=== PATIENT | male | born 1985 | race Caucasian/White ===

== ENCOUNTER 2020-05-13 08:08 | Emergency (ER) | payer BC, SELFPAY ==
--- NOTE | 2020-05-13 08:19 | ED.GENADUL_ITS ---
Discharge Plan Disposition Patient Disposition: HOME Condition: Fair Discharge Details Clinical Impression: Dental infection Primary Care Provider: Steff Acosta ED Provider: Lyric Sorensen Home Meds and New Rx's Prescriptions: New amoxicillin-pot clavulanate [Augmentin] 875-125 mg tablet 1 tab PO BID Qty: 14 RF: 0 Discharge Instructions Instructions: Dental Abscess (ED) Additional Instructions: Encourage water intake. We will continue with Tylenol and ibuprofen. Please take 1000 mg of Tylenol every 6 hours as well as patient milligrams of ibuprofen every 6 hours. Please take the antibiotics as prescribed. Even if symptoms improve, please take the entire course. If you develop fever/chills, increased pain, nausea/vomiting some swelling or other new/worsening symptoms please seek care urgently once again. Otherwise, please follow-up with your dentist as soon as possible. A list of local dentist and oral surgeons is attached. As was advised by her dentist, you will likely need this tooth extracted. Medical Decision Making Patient pleasant 35-year-old male presents today with chief complaint of left lower dental pain. He reports that he was seen for the same pain 1 month ago by his dentist and was diagnosed with an infection at the #17 tooth. The dentist who recommended surgical extraction did give him a list of local dentist that would be capable of doing this. However, the patient states he is did not comply with follow-up as he improved after p.o. antibiotics. Reports left to be treated with amoxicillin. States that pain has been steadily increasing once again over the past few days. He denies any fevers or chills. Pain radiates to the ear. No rash, fevers, headaches. On exam, patient appears nontoxic. He has no notable swelling. He does have a dental carry at the #17 tooth 1 posterior lateral aspect. This is the area where the patient is tender. He has no limited motion, no swelling under the tongue, no abnormal swelling in the posterior oropharynx. Patient does not appear to have a uvula which she reports has been told since historically. Is not postsurgical. No nuchal rigidity. I do not see any evidence at this time to suggest a systemic illness, there is no drainable abscess. Patient will be treated with Augmentin. I encouraged probiotics. Encourage water intake. We did discuss appropriate dosing of Tylenol and ibuprofen. List of local dentist was again given to the patient. She will call Friday to schedule follow-up appointment. Return precautions were discussed. All his questions and concerns were addressed and he is in agreement this plan. HPI General Mode of arrival: ambulatory . Date/Time Provider Initiated Documentation: 05/13/20 08:19 . Limitations to Documentation: no limitations . Information obtained by: patient and RN notes reviewed . History of Present Illness 35 year old M presents to the emergency department with the chief complaint of left lower dental pain, described as moderate, with intensity rated at 3. Quality is described as aching, and is localized to the mouth. Patient reports no radiation. Patient started experiencing this day(s) (3) and it has been constant. Medication improves symptom(s), No exacerbating factors reported . Patient notes no other symptoms.. Patient did receive the following treatments prior to arrival, NSAID (ibuprofen at 0300) Related Data Home Medications Medication Instructions Recorded Confirmed amoxicillin-pot clavulanate 1 tab PO BID #14 tab 05/13/20 [Augmentin] Previous Rx's Medication Instructions Recorded amoxicillin-pot clavulanate 1 tab PO BID #14 tab 05/13/20 [Augmentin] Allergies Allergy/AdvReac Type Severity Reaction Status Date / Time No Known Allergies Allergy Unverified 05/13/20 08:26 Review of Systems Constitutional Constitutional: Reports as per HPI, Denies chills, Denies fatigue, Denies fever(s), Denies headache(s) and Denies poor appetite Eyes Eyes: Denies change in vision and Denies irritation ENT Ears, Nose, Mouth, and Throat: Reports as per HPI, Reports dental pain, Denies dysphagia, Denies dizziness, Denies dry mouth, Denies ear discharge, Denies otalgia, Reports facial pain, Denies headache(s), Denies hoarseness, Denies lip swelling, Denies nasal congestion, Denies odynophagia and Denies sore throat Cardiovascular Cardiovascular: Reports as per HPI and Denies chest pain Respiratory Respiratory: Reports as per HPI and Denies cough Gastrointestinal Gastrointestinal: Reports as per HPI, Denies dysphagia, Denies nausea, Denies odynophagia and Denies vomiting Integumentary/Breasts Skin/Breast: Reports as per HPI, Denies erythema, Denies rash and Denies skin pain Neurologic Neurologic: Reports as per HPI, Denies dizziness and Denies headache(s) Endocrine Endocrine: Denies fatigue Allergic/Immunologic Allergic/Immunologic: Denies lip swelling [facility] Social History Smoking/Tobacco Use Status: Current-Occasional Tobacco Type: cigarettes and e- cigarettes Smoking risk assessment performed?: Yes Alcohol Intake: never Drug use: Daily Substance use type: marijuana Do you feel safe at home: Yes Do you feel safe in your relationship?: Yes Exam Const General: cooperative, healthy appearing, comfortable, no acute distress, well developed and well groomed Nutritional Appearance: average body habitus and well nourished Orientation: alert and awake [facility] Head: normal to inspection, normocephalic and atraumatic Ears: hearing grossly normal bilaterally, external ears normal and TM's normal bilaterally General nose exam: external nose normal and nares normal Face and sinus: normal facial exam, sinuses nontender and face symmetric Mouth: oral mucosae normal, lip normal, tongue normal, oropharynx normal, no drooling, no muffled voice, normal tongue, no trismus and No restricted motion Teeth and gingiva: caries (visiblce caries at posterior and lateral aspect #17 tooth, tender here) and fair dentition Throat: posterior oropharynx normal, tonsils normal and uvula not midline (no uvula visualized) Eyes General: appearance normal, both eyes and all related structures Neck Neck: normal visual inspection, full ROM, no lymphadenopathy, no meningeal signs, trachea midline, supple and no anterior neck swelling Resp Effort & Inspection: normal respiratory effort, able to speak in complete sentences and no respiratory distress Auscultation: clear to auscultation bilaterally, no rales, no rhonchi and no wheezes Cardio Rate: regular rate Rhythm: regular rhythm Heart Sounds: S1 normal and S2 normal Skin General skin exam: no rashes or lesions noted Trauma: no lacerations or abrasions Neuro General: patient alert and patient awake Cognition: normal cognition Speech: speech normal Gait: normal gait Psych Appearance: grossly normal and well kempt Mental Status: mental status grossly normal Speech and Movement: speech and movement normal
[2020-05-13 08:21] VITALS: BP 148/99; PULSE 69; RESP 18; TEMP 36.8; O2SAT 98
== END 2020-05-13 08:57 | disposition home or self-care (01) ==
PROVIDERS: Emergency Provider Physician Assistant; PCP Family Medicine
DX: R68.84 Jaw pain (principal); K04.7 Periapical abscess without sinus
CPT/HCPCS: 99283

== ENCOUNTER 2020-05-17 07:48 | Emergency (ER) | payer BC, SELFPAY ==
[2020-05-17 07:57] VITALS: BP 151/108; PULSE 71; RESP 19; TEMP 36.7; O2SAT 100
--- NOTE | 2020-05-17 08:21 | ED.GENADUL_ITS ---
Discharge Plan Disposition Patient Disposition: HOME Condition: Improving Discharge Details Clinical Impression: Dental infection, Odontalgia Primary Care Provider: Steff Acosta ED Provider: Nas Barillas Home Meds and New Rx's Prescriptions: New hydrocodone-acetaminophen 5-325 mg tablet 1 tab PO Q8H PRN (Reason: pain) Qty: 7 RF: 0 Continued amoxicillin-pot clavulanate [Augmentin] 875-125 mg tablet 1 tab PO BID Qty: 14 RF: 0 Discharge Instructions Instructions: Dental Abscess (ED), Toothache (ED) Additional Instructions: Please follow-up with your general dentist as well as call [facility] oral surgery to be placed on a call in list. Return if you develop swelling that causes difficulty swallowing or speaking. Continue ibuprofen as needed for pain. May use Tylenol or the prescribed hydrocodone with Tylenol if needed for breakthrough pain. Small, sips of fluids. Return to the ER for any emergent concern. Medical Decision Making Otherwise healthy 35-year-old male percents for second visit for left lower dental pain. Has been taking Augmentin since visit to ED on May 13. Now with persistent left lower buccal swelling and tenderness overlying unerupted tooth #17. No evidence of abscess on clinical exam. Patient consented for inferior alveolar regional anesthesia which was performed with a 50-50 mix of bupivacaine and lidocaine. He was consented for a small number of hydrocodone to be used for severe/breakthrough pain. He has a plan to pursue follow-up with dentistry in the outpatient setting. He is stable and improved at this time, appropriate for discharge to home. HPI General Mode of arrival: ambulatory . Date/Time Provider Initiated Documentation: 05/17/20 08:05 . Limitations to Documentation: no limitations . Information obtained by: patient . History of Present Illness 35 year old M presents to the emergency department with the chief complaint of Left lower jaw pain, described as moderate, Quality is described as dull and constant, and is localized to the face, mouth and left. Patient reports no radiation. Patient started experiencing this day(s) and it has been constant. No relieving factors improve symptom(s), No exacerbating factors reported . Patient notes denies fever/chills, headaches and nausea/vomiting. Patient did receive the following treatments prior to arrival, NSAID and other (Tylenol, Augmentin) Related Data Home Medications Medication Instructions Recorded Confirmed amoxicillin-pot clavulanate 1 tab PO BID #14 tab 05/13/20 [Augmentin] hydrocodone-acetaminophen 1 tab PO Q8H PRN #7 tab 05/17/20 Previous Rx's Medication Instructions Recorded amoxicillin-pot clavulanate 1 tab PO BID #14 tab 05/13/20 [Augmentin] hydrocodone-acetaminophen 1 tab PO Q8H PRN #7 tab 05/17/20 Allergies Allergy/AdvReac Type Severity Reaction Status Date / Time No Known Allergies Allergy Unverified 05/17/20 08:02 General Stated Complaint: DentalOral ML: 4 Review of Systems Narrative: No vomiting, no change to vision, no cheek swelling, no difficulty swallowing. Denies other illness. 6 systems reviewed and otherwise negative. Dental follow-up pending. [facility] Social History Smoking/Tobacco Use Status: Current-Occasional Tobacco Type: cigarettes and e- cigarettes Smoking risk assessment performed?: Yes Alcohol Intake: never Drug use: Daily Substance use type: marijuana Do you feel safe at home: Yes Do you feel safe in your relationship?: Yes Exam Narrative Exam Narrative: GEN: awake, alert, oriented 3. Pleasant, well groomed, interactive. HEAD: Normocephalic, atraumatic ENT: Mucous membranes moist, oropharynx with mild left lower buccal swelling, no broken teeth appreciated. Tender at unerupted 17. Tympanic memories clear bilaterally external ear exam unremarkable EYES: PERRL, EOMI NECK: Full ROM, no RAMÓN, no menigismus CHEST/RESP: Nontender, clear to auscultation bilateral, no wheeze/rhonchi/rales CARDIOVASCULAR: RRR, no murmur, rub shakira. 2+ Rad pulse bilateral ABDOMEN: Soft, nontender, no mass. +Bowel sounds EXT: Full ROM, no edema, no rash Neuro: Grossly normal neurologic exam, conversant, interactive. Psych: Speech fluent, thoughts congruent, affect normal Course Vital Signs Vital signs: Vital Signs Temperature 36.7 C 05/17/20 07:57 Pulse 71 05/17/20 07:57 Respiratory Rate 19 05/17/20 07:57 Blood Pressure 151/108 H 05/17/20 07:57 Pulse Oximetry 100 05/17/20 07:57 Temperature 36.7 C 05/17/20 07:57 Temperature Source Temporal Artery Scan 05/17/20 07:57 Pulse 71 05/17/20 07:57 Respiratory Rate 19 05/17/20 07:57 Respiratory Effort 05/17/20 08:02 Blood Pressure 151/108 H 05/17/20 07:57 Blood Pressure Position Sitting 05/17/20 07:57 Pulse Oximetry 100 05/17/20 07:57 Oxygen Delivery Method Room Air 05/17/20 07:57 Oxygen Flow Rate 0 05/17/20 07:57 Pain Level 05/17/20 08:03 Procedures Nerve Block Nerve Block 1: Local Anesthetic: Bupivicaine 0.5% Procedure Successful: Yes Patient Tolerated Procedure: well Complications: none
[2020-05-17] MEDS: Bupivacaine 0.5% Pres-Free 30 ML VIAL (08:29)
[2020-05-17 08:38] VITALS: BP 132/92
== END 2020-05-17 08:40 | disposition home or self-care (01) ==
PROVIDERS: Emergency Provider Emergency Medicine; PCP Family Medicine
DX: R68.84 Jaw pain (principal); K04.7 Periapical abscess without sinus
CPT/HCPCS: 64450

== ENCOUNTER 2020-05-27 14:12 | Emergency (ER) | payer BC, SELFPAY ==
[2020-05-27 14:16] VITALS: BP 158/88; PULSE 103; RESP 16; TEMP 37; O2SAT 100
--- NOTE | 2020-05-27 14:44 | W.ED.GENAD ---
Discharge Plan Disposition Patient Disposition: HOME Condition: Stable Discharge Details Clinical Impression: Facial cellulitis Primary Care Provider: Steff Acosta ED Provider: Willard Escobar Home Meds and New Rx's Prescriptions: New sulfamethoxazole-trimethoprim [Bactrim DS] 800-160 mg tablet 1 tab PO BID Qty: 20 RF: 0 Discontinued hydrocodone-acetaminophen 5-325 mg tablet 1 tab PO Q8H PRN (Reason: pain) Qty: 7 RF: 0 Discharge Instructions Instructions: Cellulitis (ED) Additional Instructions: Bactrim as directed. [id number] Tylenol and/or Motrin as directed for discomfort. Warm compresses every 2 hours for 20 minutes. Please watch for new or worsening symptoms and return immediately to the ER. Otherwise I recommend following up with your primary care provider in the next 2-3 days for prompt reevaluation. Medical Decision Making This is a 35-year-old gentleman who presents complaining of facial infection. Chief complaint with eye infection however upon further evaluation this appears to be facial more of a nasal-facial cellulitis as opposed to a true orbital or periorbital cellulitis. Patient appears well, nontoxic, afebrile. There is no pointing abscess. No fluctuance. The eye itself is unremarkable. He is able to move his eye in all directions without any discomfort whatsoever. Initially his blood pressure was 158/88, trended downward to 135/81. Pulse upon presentation was 103, heart rate subsequently in the 90s. At this time it would appear as though he likely has facial cellulitis that stems from either what began as a pimple or potentially be a lateral right nare dryness. No signs of any obvious pointing abscess that would require I&D. No evidence of orbital or periorbital cellulitis. We discussed options at this time. I see no clear indication for IV access, CT imaging, laboratory values. Symptoms began on and are rather localized. We will initiate p.o. antibiotic therapy, initial dose of Bactrim DS given here in the ER. We discussed the importance of outpatient follow-up with his primary care provider, warm compresses, and he was encouraged to return to the ER for new or worsening symptoms. We discussed signs and symptoms of orbital versus periorbital cellulitis, additional symptoms such as increasing redness, increasing pain, pointing abscess, fever, etc. all as clear indication to return immediately to the ER. Patient understands, has no additional questions or concerns, and is comfortable with this disposition Medical Records Medical records reviewed: Yes I reviewed the patient's medical records. HPI General Mode of arrival: ambulatory. Date/Time Provider Initiated Documentation: 05/27/20 14:12. Limitations to Documentation: no limitations. Information obtained by: patient. HPI Narrative: This is a 35-year-old male, denies any significant past medical history, presenting to the ER with concern of an infection to his face. He reports that on he noticed a small pimple on the right side of his nose, also inside of his right nostril the tissue was raw because of the dry air. Subsequently the right side of his nose, tissue just below his eye has become increasingly red, swollen, uncomfortable. He reports the pain is minimal. There has been no draining. Reports a fever yesterday 100.1. He did take Tylenol today. He denies any upper eyelid swelling, blurry vision, double vision, or pain with movement of his eye. Denies any radiation of pain into his ear, down his neck, sore throat, chest pain, shortness of breath, rash elsewhere on his body. Related Data Home Medications Medication Instructions Recorded Confirmed sulfamethoxazole-trimethoprim 1 tab PO BID #20 tab 05/27/20 [Bactrim DS] Previous Rx's Medication Instructions Recorded sulfamethoxazole-trimethoprim 1 tab PO BID #20 tab 05/27/20 [Bactrim DS] Allergies Allergy/AdvReac Type Severity Reaction Status Date / Time No Known Allergies Allergy Unverified 05/17/20 08:02 General Stated Complaint: RashLesion ML: 3 Review of Systems Constitutional Constitutional: Reports fever(s) and Denies headache(s) Eyes Eyes: Denies blurry vision, Denies change in vision, Denies eye discharge and Denies eye pain ENT Ears, Nose, Mouth, and Throat: Denies ear discharge, Denies otalgia, Reports facial pain, Denies headache(s), Denies mouth pain, Denies neck mass, Denies neck pain, Denies sore throat and Denies throat swelling Cardiovascular Cardiovascular: Denies chest pain and Denies dyspnea Respiratory Respiratory: Denies cough and Denies dyspnea Gastrointestinal Gastrointestinal: Denies abdominal pain, Denies nausea and Denies vomiting Musculoskeletal Musculoskeletal: Denies neck pain Integumentary/Breasts Skin/Breast: Reports erythema Neurologic Neurologic: Denies headache(s) Allergic/Immunologic Allergic/Immunologic: Denies throat swelling [facility] Social History Smoking/Tobacco Use Status: Current-Occasional Tobacco Type: cigarettes and e-cigarettes Smoking risk assessment performed?: Yes Alcohol Intake: never Drug use: Daily Substance use type: marijuana Do you feel safe at home: Yes Do you feel safe in your relationship?: Yes Exam Const General: cooperative, healthy appearing, comfortable and no acute distress Orientation: alert and awake [facility] Head: normal to inspection, normocephalic and atraumatic Ears: external ears normal, TM's normal bilaterally and EAC's normal General nose exam: septum normal, mucous membranes and turbinates abnormal erythematous on the right and no nasal discharge noted Face and sinus: erythema and tenderness Face images: 1. Mild erythema, swelling, tenderness, warmth. There is no pointing abscess or fluctuance. Minimal diffuse induration. Skin appears to be intact. No drainage. Mouth: moist mucous membranes Teeth and gingiva: dentition normal Throat: posterior oropharynx normal Eyes General: appearance normal, both eyes and all related structures Alignment and Position: alignment normal Eyelids: eyelids normal Conjunctivae: conjunctivae normal Sclera: sclerae normal Cornea: corneas normal Pupils: PERRL EOM: EOM intact bilaterally Direct ophthalmoscopy: normal light reflex Neck Neck: normal visual inspection, full ROM, no lymphadenopathy, no meningeal signs, trachea midline, supple and nontender Resp Effort & Inspection: normal respiratory effort and able to speak in complete sentences Auscultation: clear to auscultation bilaterally Cardio Rate: regular rate Rhythm: regular rhythm Skin General skin exam: no rashes or lesions noted Neuro General: patient alert, patient awake, moves all extremities and no focal motor deficits Cognition: normal cognition Speech: speech normal Gait: normal gait Motor: muscle tone normal throughout Sensory Exam: no sensory deficits noted Psych Appearance: grossly normal Mental Status: mental status grossly normal Course Vital Signs Vital signs: Vital Signs Temperature 37 C 05/27/20 14:16 Pulse 103 H 05/27/20 14:16 Respiratory Rate 16 05/27/20 14:16 Blood Pressure 158/88 H 05/27/20 14:16 Pulse Oximetry 100 05/27/20 14:16 Temperature 37 C 05/27/20 14:16 Temperature Source Tympanic 05/27/20 14:16 Pulse 103 H 05/27/20 14:16 Respiratory Rate 16 05/27/20 14:16 Respiratory Effort Non-Labored 05/27/20 14:19 Blood Pressure 158/88 H 05/27/20 14:16 Blood Pressure Position Sitting 05/27/20 14:16 Pulse Oximetry 100 05/27/20 14:16 Oxygen Delivery Method Room Air 05/27/20 14:16 Oxygen Flow Rate 0 05/27/20 14:16 Pain Level 1 05/27/20 14:16
[2020-05-27] MEDS: Sulfameth/Trimeth DS TAB 1 TAB PO (14:54)
[2020-05-27 14:55] VITALS: BP 135/81; PULSE 97; RESP 18; O2SAT 100
== END 2020-05-27 15:31 | disposition home or self-care (01) ==
PROVIDERS: Emergency Provider Physician Assistant; PCP Family Medicine
DX: L03.211 Cellulitis of face (principal)
CPT/HCPCS: 99283; 99284

== ENCOUNTER 2020-05-28 07:48 | Emergency (ER) | payer BC, SELFPAY ==
[2020-05-28 07:58] VITALS: BP 135/76; PULSE 118; RESP 18; TEMP 36.6; O2SAT 97
--- NOTE | 2020-05-28 08:00 | DI.CT_ITS ---
EXAM: CT FACIAL W CLINICAL HISTORY: R sided facial cellulitis. TECHNIQUE: Imaging Protocol: Axial computed tomography images with coronal and sagittal reformatted images were created and reviewed CONTRAST MATERIAL: Intravenous: Omnipaque 350 Contrast volume:100 ml Contrast route:IV - COMPARISON: No exams were available for comparison FINDINGS: Facial Bones: No definite fracture is noted in facial bones. Sinuses and Mastoids: Unremarkable. Globes, extraocular muscles, optic nerves and retrobulbar fat: Normal. Upper aerodigestive tract: Normal. Mandible and bilateral temporomandibular joints: Normal. Soft tissues: Skin thickening of the right cheek. No drainable abscess or fluid collection. The aida ctive lymph nodes. Visualized portions of the brain: Normal. IMPRESSION: Soft tissue swelling over the right cheek consistent with cellulitis. No drainable abscess or fluid collection. No bony abnormality. RADIATION DOSE DELIVERED: 686.06mGy.cm Total DLP DATA REPOSITORY: All CT scans at this facility are submitted to the National Radiology Data Registry (NRDR) Dose Index Registry (DIR) with the [employer] (ACR). RADIATION OPTIMIZATION: All CT scans at this facility use at least one of these dose optimization te chniques: automated exposure control; mA and/or kV adjustment per patient size (includes targeted exa ms where dose is matched to clinical indication); or iterative reconstruction.
--- NOTE | 2020-05-28 08:09 | ED.GENADUL_ITS ---
Discharge Plan Disposition Patient Disposition: HOME Condition: Stable Discharge Details Clinical Impression: Facial cellulitis Primary Care Provider: Steff Acosta ED Provider: Willard Escobar Home Meds and New Rx's Prescriptions: Continued sulfamethoxazole-trimethoprim [Bactrim DS] 800-160 mg tablet 1 tab PO BID Qty: 20 RF: 0 Discharge Instructions Instructions: Cellulitis (ED) Additional Instructions: CT imaging does not reveal any obvious deep structure infection or abscess that requires drainage. Your white blood cell count was normal. Continue taking Bactrim as directed. Cool and/or warm compresses every 2 hours for 20 minutes. [id number] Tylenol and/or Motrin as directed for discomfort. Please watch for new or worsening symptoms and return to the ER for any concerns. I strongly recommend reaching out your primary care provider tomorrow for prompt outpatient reevaluation. HPI General Mode of arrival: ambulatory . Date/Time Provider Initiated Documentation: 05/28/20 08:08 . Limitations to Documentation: no limitations . Information obtained by: patient . HPI Narrative: This is a 35-year-old male who denies any significant past medical history. He was evaluated yesterday in the ER by me, please refer to that note as well for more thorough HPI. In short he developed an infection to the right side of his face on whether it be from dry skin in his right nostril or from a pimple on the right side of his nose. Spread into the right side of his face. Diagnosed with facial cellulitis, no evidence of abscess. He was given a prescription for Bactrim and close return precautions. He was given his dose of Bactrim yesterday in the ER and did not fill his prescription. He presents now to the ER stating that the pain is worse and the swelling has spread down his face. He reports chills but no documented fever, has taken [id number] medication for fever control. Denies global headache, visual changes, sore throat, neck pain. Related Data Home Medications Medication Instructions Recorded Confirmed sulfamethoxazole-trimethoprim 1 tab PO BID #20 tab 05/27/20 05/28/20 [Bactrim DS] Previous Rx's Medication Instructions Recorded sulfamethoxazole-trimethoprim 1 tab PO BID #20 tab 05/27/20 [Bactrim DS] Allergies Allergy/AdvReac Type Severity Reaction Status Date / Time No Known Allergies Allergy Unverified 05/28/20 08:04 General Stated Complaint: RashLesion ML: 4 Review of Systems Constitutional Constitutional: Reports fever(s) and Denies headache(s) Eyes Eyes: Denies change in vision and Denies eye discharge ENT Ears, Nose, Mouth, and Throat: Denies headache(s), Denies neck pain and Denies sore throat Cardiovascular Cardiovascular: Denies chest pain and Denies dyspnea Respiratory Respiratory: Denies cough and Denies dyspnea Gastrointestinal Gastrointestinal: Denies abdominal pain, Denies nausea and Denies vomiting Musculoskeletal Musculoskeletal: Denies back pain and Denies neck pain Integumentary/Breasts Skin/Breast: Reports erythema Neurologic Neurologic: Denies headache(s) [facility] Social History Smoking/Tobacco Use Status: Current-Occasional Tobacco Type: cigarettes and e- cigarettes Smoking risk assessment performed?: Yes Alcohol Intake: never Drug use: Daily Substance use type: marijuana Do you feel safe at home: Yes Do you feel safe in your relationship?: Yes Course Vital Signs Vital signs: Vital Signs Temperature 36.6 C 05/28/20 07:58 Pulse 118 H 05/28/20 07:58 Respiratory Rate 18 05/28/20 07:58 Blood Pressure 135/76 05/28/20 07:58 Pulse Oximetry 97 05/28/20 07:58 Temperature 36.6 C 05/28/20 07:58 Temperature Source Temporal Artery Scan 05/28/20 07:58 Pulse 118 H 05/28/20 07:58 Respiratory Rate 18 05/28/20 07:58 Respiratory Effort Non-Labored 05/28/20 08:01 Blood Pressure 135/76 05/28/20 07:58 Pulse Oximetry 97 05/28/20 07:58 Oxygen Delivery Method Room Air 05/28/20 07:58 Oxygen Flow Rate 0 05/28/20 07:58 Pain Level 3 05/28/20 07:58
[2020-05-28] MEDS: Normal Saline 1,000 ML 1000 ML IV (08:20)
[2020-05-28] MEDS: Sulfameth/Trimeth DS TAB 1 TAB PO (08:27)
[2020-05-28 08:29] LABS: Abs Immature Grans 0.04 10^3/uL (0.0-0.06); Absolute Basophil Count 0.02 10^3/uL (0.0-0.2); Absolute Lymphocyte Count 1.33 10^3/uL (1.2-3.4); Absolute Monocyte Count 0.88 10^3/uL (0.1-0.8); Absolute Neutrophil Count 8.37 10^3/uL (1.2-6.7); Basophils % 0.2; HCT 40.1 % (40.0-50.0); HGB 14.2 g/dL (13.5-17.5); Immature Grans % 0.4; Lymphocytes % 12.5; MCH 30.9 pg (27.0-33.0); MCHC 35.4 % (32.0-36.0); MCV 87.4 fL (80-95); MPV 8.5 fL (8.0-11.0); Monocytes % 8.3; Neutrophils % 78.6; Nucleated RBC 0 %; Platelet Count 234 10^3/uL (130-400); RBC 4.59 10^6/uL (4.36-5.78); RDW 11.9 % (11.8-14.1); RDW-SD 38.6 fL; WBC 10.64 10^3/uL (4.4-10.8)
[2020-05-28 08:42] LABS: ALT 44 U/L (16-63); AST 23 U/L (15-37); Albumin 3.9 g/dL (3.4-5.0); Alkaline Phosphatase 29 U/L (46-116); Anion Gap 9.7 mmol/L (3-11); BUN 7 mg/dL (7-18); Bilirubin, Total 0.9 mg/dL (0.2-1.0); CO2 23.3 mmol/L (21.0-32.0); CREATININE 0.95 mg/dL (0.70-1.30); Calcium 9.2 mg/dL (8.5-10.1); Chloride 99 mmol/L (98-107); Glucose 118 mg/dL (74-106); Potassium 3.4 mmol/L (3.5-5.1); Sodium 132 mmol/L (136-145)
[2020-05-28] MEDS: Omnipaque 350 MG/ML 100 ML BTL IJ (08:56)
[2020-05-28] MEDS: Normal Saline Flush 10 ML SYR IVP (08:58)
[2020-05-28] MEDS: Normal Saline - Diluent 50 ML VIAL IV (08:58)
--- NOTE | 2020-05-28 09:03 | DI.VRAD_ITS ---
PROCEDURE INFORMATION: Exam: CT Maxillofacial With Contrast Exam date and time: 05/28/2020 8:47 AM Age: 35 years old Clinical indication: Other: R sided facial cellulitis TECHNIQUE: Imaging protocol: Computed tomography images of the face with intravenous contrast. Radiation optimization: All CT scans at this facility use at least one of these dose optimization techniques: automated exposure control; mA and/or kV adjustment per patient size (includes targeted exams where dose is matched to clinical indication); or iterative reconstruction. Contrast material: OMNIPAQUE 350; Contrast volume: 100 ml; Contrast route: INTRAVENOUS (IV); COMPARISON: No relevant prior studies available. FINDINGS: Orbital cavity: Orbits are normal. Globes are unremarkable. Bones/joints: No acute fracture. Paranasal sinuses: Normal. No air-fluid levels. Soft tissues: Inflammatory changes in the soft tissues anterior to the right maxillary sinus and lateral to the right mandible.. Other findings: No drainable fluid collection. IMPRESSION: 1. Inflammatory changes in the soft tissues anterior to the right maxillary sinus and lateral to the right mandible.. 2. No drainable fluid collection. Dictated and Authenticated by: Earnest Molina MD. Ordering:FERDINAND Lamar MD
[2020-05-28] MEDS: Ketorolac 30 MG/ML VIAL IVP (09:29)
[2020-05-28] MEDS: Dexamethasone 4 MG/ML VIAL 8 MG IVP (09:30)
[2020-05-28 09:34] VITALS: BP 135/73; PULSE 99; RESP 18; O2SAT 96
== END 2020-05-28 09:39 | disposition home or self-care (01) ==
PROVIDERS: Emergency Provider Physician Assistant; PCP Nurse Practitioner Family
DX: L03.211 Cellulitis of face (principal)
CPT/HCPCS: 36415; 80053; 96361; 96374; 96375; 99283; 70487; 85025; 99284; J1100; J1885; J3490

== ENCOUNTER 2020-12-11 14:58 | Emergency (ER) | payer OTHER, SELFPAY ==
[2020-12-11 15:00] VITALS: BP 146/92; PULSE 68; RESP 15; TEMP 36.8; O2SAT 97
--- NOTE | 2020-12-11 15:14 | W.ED.GENAD ---
Discharge Plan Disposition Patient Disposition: HOME Condition: Stable Discharge Details Clinical Impression: Finger laceration Primary Care Provider: Carmita Edmond ED Provider: Willard Escobar Home Meds and New Rx's Prescriptions: No Action No Known Home Meds RF: 0 Discharge Instructions Instructions: Finger Laceration (ED) Additional Instructions: Keep the wound clean and dry, change antibiotic dressing daily. [id number]-[id number] Tylenol and/or Motrin as directed for discomfort. Please watch for new or worsening symptoms and return to the ER for any concerns. Sutures should be removed in approximately 10 days. Medical Decision Making 35-year-old male, [id number], accidentally cut his left index finger at work just prior to arrival with a razor blade. Neuro, vascular, tendon intact. No signs of foreign body. Tetanus status is not up-to-date. Will update tetanus status and repair laceration. Patient tolerated laceration repair without difficulty. Laceration was then dressed with a nonstick antibiotic dressing. Patient comfortable discharge, has no additional questions or concerns. Medical Records Medical records reviewed: Yes I reviewed the patient's medical records. HPI General Mode of arrival: ambulatory. Date/Time Provider Initiated Documentation: 12/11/20 15:07. Limitations to Documentation: no limitations. Information obtained by: patient. HPI Narrative: 35-year-old gentleman, [id number], denies any significant past medical history. Just prior to arrival while at work he accidentally cut his left index finger with a razor blade. Reports the pain is a 1 or 2 out of 10. Denies any numbness, tingling, weakness, concern for foreign body. Bleeding is controlled. Tetanus status is greater than 5 years. Patient without any additional questions or concerns. Related Data Home Medications Medication Instructions Recorded Confirmed Unknown [No Known Home Meds] 12/11/20 12/11/20 Allergies Allergy/AdvReac Type Severity Reaction Status Date / Time No Known Allergies Allergy Unverified 12/11/20 15:05 General Stated Complaint: Laceration ML: 4 Review of Systems Constitutional Constitutional: Denies weakness Musculoskeletal Musculoskeletal: Denies numbness and Denies tingling Integumentary/Breasts Skin/Breast: Denies rash Neurologic Neurologic: Denies numbness, Denies tingling and Denies weakness [facility] Social History Smoking/Tobacco Use Status: Current-Occasional Tobacco Type: cigarettes and e-cigarettes Smoking risk assessment performed?: Yes Alcohol Intake: never Drug use: Daily Substance use type: marijuana Do you feel safe at home: Yes Do you feel safe in your relationship?: Yes Exam Const General: cooperative, healthy appearing, comfortable and no acute distress Orientation: alert and awake [facility] Head: normal to inspection, normocephalic and atraumatic Eyes General: appearance normal, both eyes and all related structures Conjunctivae: conjunctivae normal Neck Neck: normal visual inspection, trachea midline and supple Resp Effort & Inspection: normal respiratory effort and able to speak in complete sentences Cardio Rate: regular rate Rhythm: regular rhythm Skin General skin exam: no rashes or lesions noted Neuro General: patient alert, patient awake, moves all extremities and no focal motor deficits Cognition: normal cognition Speech: speech normal Gait: normal gait Sensory Exam: no sensory deficits noted Extrem General: full ROM and capillary refill normal Hand/finger images: 1. 1.5 cm well approximated not actively bleeding laceration just between the PIP and the DIP joint. There is no foreign body. Neuro, vascular, tendon intact. 5/5 strength. Full range of motion. Normal capillary refill. Psych Appearance: grossly normal Mental Status: mental status grossly normal Course Vital Signs Vital signs: Vital Signs Temperature 36.8 C 12/11/20 15:00 Pulse 68 12/11/20 15:00 Respiratory Rate 15 12/11/20 15:00 Blood Pressure 146/92 H 12/11/20 15:00 Pulse Oximetry 97 12/11/20 15:00 Temperature 36.8 C 12/11/20 15:00 Temperature Source Temporal Artery Scan 12/11/20 15:00 Pulse 68 12/11/20 15:00 Respiratory Rate 15 12/11/20 15:00 Respiratory Effort Non-Labored 12/11/20 15:04 Blood Pressure 146/92 H 12/11/20 15:00 Blood Pressure Position Sitting 12/11/20 15:00 Pulse Oximetry 97 12/11/20 15:00 Oxygen Delivery Method Room Air 12/11/20 15:00 Oxygen Flow Rate 0 12/11/20 15:00 Pain Level 0 12/11/20 15:00 Procedures Laceration Laceration 1: Site: hand Side (If applicable): left Size (cm): 1.5 Description: linear Depth: simple, single layer Local Anesthetic: Lidocaine 2% Amount of anesthesia used (mL): 4 Pre-repair: wound explored, irrigated extensively and deep structures intact Skin layer closed with: nylon Size (cm): 4-0 Number of sutures: 3 Technique: simple, interrupted
== END 2020-12-11 15:35 | disposition home or self-care (01) ==
PROVIDERS: Emergency Provider Physician Assistant; PCP Nurse Practitioner Family
DX: S61.211A Laceration without foreign body of left index finger without damage to nail, initial encounter (principal); W26.8XXA Contact with other sharp object(s), not elsewhere classified, initial encounter
CPT/HCPCS: 12001; 90471